=== PATIENT | male | born 1950 | race Caucasian/White ===

== ENCOUNTER → 2017-10-23 12:23 | Outpatient (CLI) | payer MEDICARE, OTHER, SELFPAY ==
--- NOTE | 2017-10-23 12:38 | XR_ITS ---
XR hand RT min 3V HISTORY: Right hand pain, thumb pain ITS.REASON: CYST ON BONE ORDERING PHYSICIAN: Nanette Duffy PATIENT AGE: 67 years COMPARISON: None FINDINGS: Scattered osteoarthritic changes are present involving the PIP and DIPs of all fingers including the first metacarpophalangeal joint and the first interphalangeal joint. Mildly prominent osteophyte is noted at the interphalangeal joint involving the proximal aspect of the distal phalanx laterally. No fracture or dislocation. No lytic or blastic change. There is focal soft tissue protrusion (at the prominent osteophyte of the interphalangeal joint of the palm. No aggressive bony destructive lesions evident IMPRESSION: 1. Osteoarthritis of the hand. 2. Mildly prominent osteophyte involving the proximal and lateral aspect of the interphalangeal joint of the thumb associated with focal soft tissue swelling
== END ==
PROVIDERS: PCP Nurse Practitioner; Visit Provider Nurse Practitioner
DX: M85.69 Other cyst of bone, multiple sites (principal)
CPT/HCPCS: 73130

== ENCOUNTER → 2017-11-09 09:51 | Outpatient (CLI) | payer MEDICARE, OTHER, SELFPAY ==
--- NOTE | 2017-11-09 10:13 | XR_ITS ---
XR chest 2V HISTORY: ITS.REASON: HTN, history of tobacco use ORDERING PHYSICIAN: Mariano De Oliveira MD PATIENT AGE: 67 years COMPARISON: 12/27/2016 FINDINGS: The cardiomediastinal silhouette and pulmonary vascularity are within normal limits. There is mild hyperinflation which may be related to COPD/small airway disease. No lobar consolidation or collapse evident.. Degenerative changes thoracic spine. No acute bony abnormalities. IMPRESSION: No change with no acute finding. Hyperinflation consistent small airway disease/COPD
[2017-11-09 11:23] LABS: Basophils # 0.1 K/mm3 (0-0.2); Basophils % 1.8 % (0.1-2.0); Eosinophils # 0.1 K/mm3 (0.0-0.4); Eosinophils % 2.9 % (0.1-12.0); Hematocrit 39.7 % (42.0-52.0); Hemoglobin 11.2 g/dL (14.1-18.0); Lymphocytes # 1.3 K/mm3 (0.7-4.5); Lymphocytes % 30.2 K/mm3 (10-50); Mean Corpuscular HGB Conc 28.3 g/dL (31.8-35.4); Mean Corpuscular Hemoglobin 20.2 pg (27.0-31.2); Mean Corpuscular Volume 71.4 fl (80-94); Mean Platelet Volume 7.7 fl (7.4-10.4); Monocytes # 0.3 K/mm3 (0.1-1.0); Monocytes % 6.1 % (1.7-9.3); Neutrophils # 2.6 K/mm3 (1.8-7.8); Platelet Count 229 K/mm3 (142-424); Red Blood Count 5.57 M/mm3 (4.60-6.20); Red Cell Distribution Width 17.5 % (11.5-17.5); White Blood Count 4.4 K/mm3 (4.8-10.8)
[2017-11-09 11:46] LABS: Anion Gap 12.8 mEq/L (5-15); Blood Urea Nitrogen 8 mg/dL (7-18); Carbon Dioxide 29 mmol/L (21.0-32.0); Chloride 104 mmol/L (98-107); Creatinine,Serum 1.05 mg/dL (0.70-1.30); Estimated Glomerular Filt Rate 71 ml/min (>60); GFR (African American) 86 ML/MIN (>60); Glucose 138 mg/dL (74-106); Potassium 4.8 mmoL/L (3.5-5.1); Sodium 141 mmol/L (136-145)
== END ==
PROVIDERS: Visit Provider Orthopaedic Surgery
DX: Z01.818 Encounter for other preprocedural examination (principal)
CPT/HCPCS: 36415; 71046; 80048; 85025; 93005

== ENCOUNTER → 2018-04-07 09:21 | Outpatient (CLI) | payer MEDICARE, OTHER, SELFPAY ==
[2018-04-07 09:42] LABS: Basophils % 1.2 % (0.1-2.0); Eosinophils # 0.3 K/mm3 (0.0-0.4); Hematocrit 34.7 % (42.0-52.0); Hemoglobin 10.6 g/dL (14.1-18.0); Lymphocytes # 0.9 K/mm3 (0.7-4.5); Lymphocytes % 24.7 K/mm3 (10-50); Mean Corpuscular HGB Conc 30.5 g/dL (31.8-35.4); Mean Corpuscular Hemoglobin 21.1 pg (27.0-31.2); Mean Corpuscular Volume 69.2 fl (80-94); Mean Platelet Volume 9.1 fl (7.4-10.4); Monocytes # 0.3 K/mm3 (0.1-1.0); Monocytes % 6.9 % (1.7-9.3); Neutrophils # 2.1 K/mm3 (1.8-7.8); Neutrophils % 58.2 % (37.0-80.0); Platelet Count 178 K/mm3 (142-424); Red Blood Count 5.01 M/mm3 (4.60-6.20); Red Cell Distribution Width 21.2 % (11.5-17.5); White Blood Count 3.6 K/mm3 (4.8-10.8)
[2018-04-07 13:08] LABS: Alanine Aminotransferase 337 U/L (12-78); Albumin Level 3.1 gm/dL (3.4-5.0); Anion Gap 11.3 mEq/L (5-15); Aspartate Amino Transferase 220 U/L (15-37); Bilirubin,Direct 6.1 mg/dL (0.0-0.2); Bilirubin,Indirect 1.2 mg/dL (0.0-0.9); Bilirubin,Total 7.3 mg/dL (0.2-1.0); Blood Urea Nitrogen 9 mg/dL (7-18); Calcium 9.4 mg/dL (8.5-10.1); Carbon Dioxide 30 mmol/L (21.0-32.0); Chloride 106 mmol/L (98-107); Creatinine,Serum 0.98 mg/dL (0.70-1.30); Estimated Glomerular Filt Rate 77 ml/min (>60); GFR (African American) 93 ML/MIN (>60); Glucose 149 mg/dL (74-106); Potassium 3.3 mmoL/L (3.5-5.1); Sodium 144 mmol/L (136-145); Total Protein,Serum 6.5 gm/dL (6.4-8.2)
[2018-04-07 13:59] LABS: Alkaline Phosphatase 2470 U/L (46-116)
[2018-04-08 15:08] LABS: Hep A Ab, IgM Negative (Negative); Hepatitis B Core Antibody IgM Negative (Negative); Hepatitis B Surface Antigen Negative (Negative)
[2018-04-08 18:34] LABS: Hepatitis C Antibody <0.1 s/co ratio (0.0-0.9)
== END ==
PROVIDERS: PCP Family Medicine; Visit Provider Nurse Practitioner Family
DX: R17 Unspecified jaundice (principal); R19.7 Diarrhea, unspecified
CPT/HCPCS: 36415; 80048; 80074; 80076; 85025

== ENCOUNTER → 2018-04-11 09:36 | Outpatient (CLI) | payer MEDICARE, OTHER, SELFPAY ==
[2018-04-11 10:50] LABS: Blood Urea Nitrogen 10 mg/dL (7-18); Creatinine,Serum 0.85 mg/dL (0.70-1.30); Estimated Glomerular Filt Rate 90 ml/min (>60); GFR (African American) 109 ML/MIN (>60)
--- NOTE | 2018-04-11 12:00 | CT_ITS ---
CT abdomen pelvis w con CLINICAL INDICATION: ITS.REASON: ELEVATED LIVER ENZYMES,JAUNDICE,DIARRHEA ORDERING PHYSICIAN: Nanette Duffy PATIENT AGE: 67 years COMPARISON: 07/11/2013 TECHNIQUE: Axial images obtained with sagittal and coronal reformats. All CT scans at the facility use one or more dose reduction, viz: automated exposure control, ma/kV adjustment per patient size (including targeted exams where dose is matched to indication, i.e. head), or iterative reconstruction technique. PROCEDURE: Oral Contrast: Redicat IV Contrast: 75 mL [id number]. FINDINGS: The lung bases are clear. There is dilatation of both the intra and extrahepatic biliary radicals. The common hepatic duct is dilated measuring up to 16 mm. There is a short common bile duct. The common bile duct does appear narrowed distally at the ampulla and there is also prominence of the pancreatic duct at approximately 4 to 5 mm. Lesion of the distal common bile duct is suspected. Suggest MRCP for further evaluation. The spleen and adrenal glands are unremarkable. There is an enhancing mass involving the upper pole the left kidney posteriorly at 3 points X x 3.2 cm isointense on the nephrogram phase imaging and slightly hypointense on the delayed images. There is a central area of decreased density within this lesion on the arterial phase images. This is suspicious for renal cell carcinoma. There are right renal cysts present. A 2.7 cm left renal cyst is also noted. No renal or ureteral calculi. Infrarenal abdominal aorta at 2.3 cm. There are no intestinal obstruction or free air. IMPRESSION: 1. Dilated intra and extrahepatic biliary system with dilatation of the pancreatic duct and suggestion of narrowing of the distal common bile duct. Obstruction of the distal common bile duct is considered. Neoplasm or stricture is a consideration. Recommend MRCP for further evaluation. Common bile duct stone could have a similar appearance 2. 3 cm left renal mass involving the superior pole the left kidney. Enhanced images show a stellate scar centrally. Differential diagnosis includes renal cell carcinoma or oncocytoma.
== END ==
PROVIDERS: PCP Family Medicine; Visit Provider Nurse Practitioner
DX: R74.8 Abnormal levels of other serum enzymes (principal); R17 Unspecified jaundice; R19.7 Diarrhea, unspecified
CPT/HCPCS: 36415; 74177; 82565; 84520; Q9967

== ENCOUNTER 2018-04-13 16:27 | Observation (INO) ==
--- NOTE | 2018-04-13 16:58 | Emergency Department Note ---
ED Disposition Clinical Impression: Hypokalemia, Jaundice Disposition: Xfer Short-Term Hosp Condition on Discharge: Good Referrals: Erich Angulo MD [Primary Care Provider] - - Critical Care Critical Care Time: Yes Attestation: On 04/13/18, the high probability of a clinically significant, sudden or life threatening deterioration of the following system(s) required my full and direct attention, intervention and personal management. The time I documented below is in addition to time spent performing reported procedures but includes the following listed in this critical care notation. Total Critical Care Time: 30 Vital system(s) involved:: Metabolic Failure My critical care processes included: Assessment & monitoring of V/S, Initial and Re-exams, Data Review/Interpretation, Coordinating Care, Medication Orders and management, Documentation Medical Decision Making - Medical Records MR Comment: kcl has come back 2.2, IV potassium ordered. 530pm family has said thier doctors at want them to come to to be admitted. call out to [facility]. 557pm trying to call the doctors to get him transferred. Spoke with the son that there is no indication for transfer just for the low potassium that that something we could do here and that they have to pay for an ambulance for the transfer. His son states it is not for the potassium that he stay wanted to be transferred but that he needs to have an emergent procedure done tomorrow. But he does not know what the emergent procedure is or really what it has to do with. We are calling to try to sort through these issues. 605pm have vania Abraham MD from , that they family states they office told them they need to be transfered to for emergency procedure tommorrow. but they have no idea what the procedure is. that the only thing emergent I know of is low potassium. discussed with [facility] MARTINEZ she states cannot look up records, recommends transfer to if that is what the family wants. 610pm on phone with Cheryl MARTINEZ, he states nothing in computer. 629 pm have vania Luna accepts in transfer to [facility]. - Isaac Inquiry Pt receiving controlled substance: No Vital Signs: 04/13/18 16:32 04/13/18 17:49 04/13/18 18:00 Temperature 98.4 F Temperature Source Oral Pulse Rate [Right Brachial] 66 63 65 Respiratory Rate 18 18 Blood Pressure [Right Arm] 119/74 134/71 136/74 Blood Pressure Mean [Right Arm] 89 92 94 Blood Pressure Source [Right Arm] Automatic Cuff Automatic Cuff Automatic Cuff Blood Pressure Position [Right Arm] Sitting Sitting Sitting 02 Sat by Pulse Oximetry 94 L 94 L 95 Oxygen Delivery Method Room Air Room Air Room Air - Lab Data Lab Results 04/13/18 16:45: Sodium 139, Potassium 2.2 L*, Chloride 100, Carbon Dioxide 29, Anion Gap 12.2, BUN 11, Creatinine 0.92, Estimated Creat Clear 92, Estimated GFR 83, Est GFR ( Amer) 100, Glucose 310 H, Calcium 8.9, Total Bilirubin 8.5 H, AST 150 H, ALT 226 H, Alkaline Phosphatase 1125 H, Total Protein 6.6, Albumin 2.8 L, Globulin 3.8 H, Albumin/Globulin Ratio 0.7 L 04/13/18 16:45: WBC 3.1 L, RBC 4.70, Hgb 9.8 L, Hct 32.1 L, MCV 68.3 L, MCH 20.8 L, MCHC 30.5 L, RDW 22.7 H, Plt Count 213, MPV 9.8, Neut % (Auto) 58.1, Lymph % (Auto) 28.5, [place] % (Auto) 5.4, Eos % (Auto) 6.8, Baso % (Auto) 1.1, Neut # (A uto) 1.8, Lymph # (Auto) 0.9, [place] # (Auto) 0.2, Eos # (Auto) 0.2, Baso # (Auto) 0.0 04/13/18 16:45: Phosphorus 2.1 L, Magnesium 1.3 L Result diagrams: 04/13/18 16:45 04/13/18 16:45 Orders (Tests/Meds): ED MEDICATIONS Generic Name Dose Route Start Last Admin Trade Name Freq PRN Reason Stop Dose Admin Potassium Chloride/Water 100 mls @ 100 mls/hr 04/13/18 17:30 04/13/18 17:37 Potassium Chloride 10meq/100ml Ivpb IV 04/13/18 20:29 100 mls/hr Q1H JENNIFER Administration Sodium Chloride 1,000 mls @ 999 mls/hr 04/13/18 17:45 04/13/18 17:38 Sod Chlor 0.9% 1000ml Bag IV 04/13/18 18:45 999 mls/hr .Q1H1M JENNIFER Administration Discontinued Medications Generic Name Dose Route Start Last Admin Trade Name Tono PRN Reason Stop Dose Admin Potassium Chloride 40 meq 04/13/18 17:24 04/13/18 17:48 Klor-Con 20meq Tablet PO 04/13/18 17:25 40 meq ONCE ONE Administration ORDERS Category Date Time Status ECG Request by /Nse Stat Y 04/13/18 16:59 Ordered - ECG Data Tracing #1 ER EKG read by myself shows normal sinus rhythm rate of 65, normal axis, no QT prolongation, nonspecific EKG General Adult HPI - General Chief complaint: Recheck/Abnormal Lab/Rx Stated complaint: Needs K IV Time Seen by Provider: 04/13/18 17:27 Mode of Arrival: Ambulatory Limitations: No Limitations Description of Symptoms (Recalled from ER Triage Doc. by RN): Pt reports he saw a liver specialist in [place] today and had blood work done. Pt states when he got home he was contacted by physcian's office and told to come to the ER r/t low potassium level - History of Present Illness HPI narrative: Patient states he feels his normal self he states he has some minimal fatigue he denies any pain no headache chest pain abdominal pain no nausea vomiting or diarrhea no palpitations no shortness of breath. He was seen at his doctor's office had some outpatient labs and they called him back and per the family his potassium was too low and they told him to present to the nearest emergency department. - Related Data Home Medications Medication Instructions Recorded Confirmed atorvastatin 80 mg tablet 80 mg PO DAILY 11/09/17 04/13/18 clopidogrel 75 mg tablet 75 mg PO DAILY 11/09/17 04/13/18 metformin ER 500 mg 500 mg PO DAILY 11/09/17 04/13/18 tablet,extended release 24 hr metoprolol succinate ER 50 mg 50 mg PO DAILY 11/09/17 04/13/18 tablet,extended release 24 hr omeprazole 40 mg capsule,delayed 40 mg PO DAILY 11/09/17 04/13/18 release sitagliptin 100 mg tablet 100 mg PO DAILY 11/09/17 04/13/18 Allergies Allergy/AdvReac Type Severity Reaction Status Date / Time No Known Allergies Allergy Verified 04/13/18 16:38 [facility] History I have reviewed the patient's past medical history: Yes Medical History: Reports:: Coronary Artery Disease, Diabetes Mellitus Type 2, Gastroesophageal Reflux Disease(GERD) Denies:: Diabetes Mellitus Type 1, Seizures Other Medical History: Reports: Arthritis. Denies: Blood Transfusion Reaction Laterality Cases: Left: Arthroscopy Knee, Right: Other Other Surgeries: Yes: Colonoscopy, Coronary Stent - Social History Smoking Status: Never smoker Alcohol Intake: never Alcohol Intake Frequency:: other - Psychiatric History Expresses thoughts of harming self/others: None Suicide Plan Description: No Plan Family Hx:: Cancer, Diabetes ROS Obtained: Yes All systems reviewed & no additional complaints Physical Exam General Appearance: Nontoxic Head: Normocephalic, without obvious abnormality, atraumatic. Eyes: conjunctiva/corneas clear ENT: Mucous membranes moist. Neck: No jugular venous distention. Cardiac: regular rate and rhythm Lungs: Clear to auscultation bilaterally Abdomen: Nontender, Nondistended, positive bowel sounds, no rebound : No CVA tenderness Extremities: no edema Musculoskeletal: No chest wall tenderness Skin: No rashes or lesions to exposed skin. Neurologic: Alert. No gross focal deficits Psychiatric: Normal affect - General General appearance: alert - Respiratory Respiratory exam: Present: normal lung sounds bilaterally - Cardiovascular Cardiovascular exam: Present: regular rate - Neurological Exam Neurological exam: Present: alert
[2018-04-13 17:09] LABS: Basophils % 1.1 % (0.1-2.0); Eosinophils # 0.2 K/mm3 (0.0-0.4); Eosinophils % 6.8 % (0.1-12.0); Hematocrit 32.1 % (42.0-52.0); Hemoglobin 9.8 g/dL (14.1-18.0); Lymphocytes # 0.9 K/mm3 (0.7-4.5); Lymphocytes % 28.5 K/mm3 (10-50); Mean Corpuscular HGB Conc 30.5 g/dL (31.8-35.4); Mean Corpuscular Hemoglobin 20.8 pg (27.0-31.2); Mean Corpuscular Volume 68.3 fl (80-94); Mean Platelet Volume 9.8 fl (7.4-10.4); Monocytes # 0.2 K/mm3 (0.1-1.0); Monocytes % 5.4 % (1.7-9.3); Neutrophils # 1.8 K/mm3 (1.8-7.8); Neutrophils % 58.1 % (37.0-80.0); Platelet Count 213 K/mm3 (142-424); Red Cell Distribution Width 22.7 % (11.5-17.5); White Blood Count 3.1 K/mm3 (4.8-10.8)
[2018-04-13 17:18] LABS: Albumin Level 2.8 gm/dL (3.4-5.0); Albumin/Globulin Ratio 0.7 (1.1-1.8); Anion Gap 12.2 mEq/L (5-15); Bilirubin,Total 8.5 mg/dL (0.2-1.0); Calcium 8.9 mg/dL (8.5-10.1); Globulin 3.8 gm/dl (1.3-3.2); Total Protein,Serum 6.6 gm/dL (6.4-8.2)
[2018-04-13 17:23] LABS: Potassium 2.2 mmoL/L (3.5-5.1)
[2018-04-13 17:48] LABS: Phosphorous 2.1 mg/dL (2.4-4.9)
[2018-04-14 00:36] LABS: Anion Gap 9.6 mEq/L (5-15); Calcium 8.4 mg/dL (8.5-10.1)
[2018-04-14 00:38] LABS: Potassium 2.6 mmoL/L (3.5-5.1)
[2018-04-14 08:26] LABS: Basophils % 1.1 % (0.1-2.0); Eosinophils # 0.3 K/mm3 (0.0-0.4); Eosinophils % 7.4 % (0.1-12.0); Hemoglobin 9.7 g/dL (14.1-18.0); Lymphocytes # 1.1 K/mm3 (0.7-4.5); Lymphocytes % 30.1 K/mm3 (10-50); Mean Corpuscular HGB Conc 30.2 g/dL (31.8-35.4); Mean Corpuscular Hemoglobin 20.9 pg (27.0-31.2); Mean Corpuscular Volume 69.3 fl (80-94); Mean Platelet Volume 8.5 fl (7.4-10.4); Monocytes # 0.2 K/mm3 (0.1-1.0); Monocytes % 5.4 % (1.7-9.3); Neutrophils # 2.1 K/mm3 (1.8-7.8); Platelet Count 196 K/mm3 (142-424); Red Blood Count 4.62 M/mm3 (4.60-6.20); Red Cell Distribution Width 22.8 % (11.5-17.5); White Blood Count 3.7 K/mm3 (4.8-10.8)
[2018-04-14 08:46] LABS: Albumin Level 2.5 gm/dL (3.4-5.0); Albumin/Globulin Ratio 0.7 (1.1-1.8); Anion Gap 9.4 mEq/L (5-15); Bilirubin,Total 7.9 mg/dL (0.2-1.0); Calcium 8.4 mg/dL (8.5-10.1); Globulin 3.6 gm/dl (1.3-3.2); Total Protein,Serum 6.1 gm/dL (6.4-8.2)
[2018-04-14 08:55] LABS: Phosphorous 1.8 mg/dL (2.4-4.9); Potassium 3.4 mmoL/L (3.5-5.1)
--- NOTE | 2018-04-26 13:20 | H&P/Discharge Summary ---
General - General Admission date:: 04/13/18 Discharge date: 04/14/18 *Admission Date: 04/14/18 *Chief complaint: Patient was instructed to come to the emergency department *History of present illness: 67-year-old male who has recently been discovered to have a either metastatic renal cancer or metastatic pancreatic cancer presented to the emergency department being contacted by the [facility] and told to go to the nearest emergency department due to low potassium. Patient had been seen by the GI clinic yesterday and scheduled for MRCP due to jaundice and abnormal liver enzymes with system of malignancy. Labs performed showed hypokalemia and patient was contacted. He presented emergency department without complaint other than a little bit of weakness and was found to have a potassium of 2.2. Patient was admitted for IV and oral replacement of potassium [facility] History I have reviewed the patient's past medical history: Yes Medical History: Reports:: Coronary Artery Disease, Diabetes Mellitus Type 2, Gastroesophageal Reflux Disease(GERD), Hyperlipidemia, Hypertension, Myocardial Infarction Denies:: Diabetes Mellitus Type 1, Seizures Other Medical History: Reports: Arthritis. Denies: Blood Transfusion Reaction Laterality Cases: Left: Arthroscopy Knee, Right: Other Other Surgeries: Yes: Colonoscopy, Coronary Stent - *Social History Smoking Status: Former smoker Smoking End Date: 2 years Alcohol Intake: never Alcohol Intake Frequency:: other Occupational Status: retired Housing: house - Psychiatric History Expresses thoughts of harming self/others: None Suicide Plan Description: No Plan *Family Hx:: Cancer, Diabetes, Heart Attack Review of Systems - Review of Systems Review of systems:: pertinent systems reviewed and negative unless documented below - Constitutional Reports weakness, Denies body ache(s), Denies chills - Eyes Denies blurry vision, Denies change in vision - *Cardiovascular Denies chest pain at rest - *Respiratory Denies cough - *Gastrointestinal Denies abdominal pain, Denies cramping, Denies loose stools, Denies heartburn Exam Vital signs and Labs for Last 24 Hours: Temp Pulse Resp BP Pulse Ox 98.4 F 67 18 126/74 98 04/14/18 04:00 04/14/18 04:00 04/14/18 04:00 04/14/18 04:00 04/14/18 04:00 Laboratory Results - last 24 hr 04/13/18 16:45: Sodium 139, Potassium 2.2 L*, Chloride 100, Carbon Dioxide 29, Anion Gap 12.2, BUN 11, Creatinine 0.92, Estimated Creat Clear 92, Estimated GFR 83, Est GFR ( Amer) 100, Glucose 310 H, Calcium 8.9, Total Bilirubin 8.5 H, AST 150 H, ALT 226 H, Alkaline Phosphatase 1125 H, Total Protein 6.6, Albumin 2.8 L, Globulin 3.8 H, Albumin/Globulin Ratio 0.7 L 04/13/18 16:45: WBC 3.1 L, RBC 4.70, Hgb 9.8 L, Hct 32.1 L, MCV 68.3 L, MCH 20.8 L, MCHC 30.5 L, RDW 22.7 H, Plt Count 213, MPV 9.8, Neut % (Auto) 58.1, Lymph % (Auto) 28.5, [place] % (Auto) 5.4, Eos % (Auto) 6.8, Baso % (Auto) 1.1, Neut # (Auto) 1.8, Lymph # (Auto) 0.9, [place] # (Auto) 0.2, Eos # (Auto) 0.2, Baso # (Auto) 0.0 04/13/18 16:45: Phosphorus 2.1 L, Magnesium 1.3 L 04/14/18 00:20: Sodium 139, Potassium 2.6 L*, Chloride 103, Carbon Dioxide 29, Anion Gap 9.6, BUN 11, Creatinine 0.87, Estimated Creat Clear 92, Estimated GFR 88, Est GFR ( Amer) 107, Glucose 252 H, Calcium 8.4 L 04/14/18 06:16: POC Glucose 144 H I & O for Last 24 hours: Intake & Output 04/11/18 04/12/18 04/13/18 04/14/18 11:59 11:59 11:59 11:59 Intake Total 729.333 / 729.333 Balance 729.333 / 729.333 Weight 195 lb 9 oz Narrative: Patient is awake and alert. Skin is jaundiced he has scleral icterus. Orophary nx is moist. Neck is without lymphadenopathy. Lungs are clear. Heart has a regular rate and rhythm abdomen is soft and nontender. Neurologic exam is normal and he has no neurologic deficits per Hospital Course Hospital Course: Patient was admitted and given both IV and oral potassium supplementation. Potassium level improved. Patient was discharged home with oral potassium and will follow-up at for his MRCP. Apparently endoscopy is in the near future as well but he will need to be off his Plavix. I have given him permission to stop his Plavix. Patient has coronary artery disease and had [place] with stent in February 2016. Results Labs on day of discharge: Labs from last 24 hours 04/14/18 04/14/18 04/13/18 06:16 00:20 16:45 WBC RBC Hgb Hct MCV MCH MCHC RDW Plt Count MPV Neut % (Auto) Lymph % (Auto) [place] % (Auto) Eos % (Auto) Baso % (Auto) Neut # (Auto) Lymph # (Auto) [place] # (Auto) Eos # (Auto) Baso # (Auto) Sodium 139 Potassium 2.6 L* Chloride 103 Carbon Dioxide 29 Anion Gap 9.6 BUN 11 Creatinine 0.87 Estimated Creat Clear 92 Estimated GFR 88 Est GFR ( Amer) 107 Glucose 252 H POC Glucose 144 H Calcium 8.4 L Phosphorus 2.1 L Magnesium 1.3 L Total Bilirubin AST ALT Alkaline Phosphatase Total Protein Albumin Globulin Albumin/Globulin Ratio 04/13/18 04/13/18 16:45 16:45 WBC 3.1 L RBC 4.70 Hgb 9.8 L Hct 32.1 L MCV 68.3 L MCH 20.8 L MCHC 30.5 L RDW 22.7 H Plt Count 213 MPV 9.8 Neut % (Auto) 58.1 Lymph % (Auto) 28.5 [place] % (Auto) 5.4 Eos % (Auto) 6.8 Baso % (Auto) 1.1 Neut # (Auto) 1.8 Lymph # (Auto) 0.9 [place] # (Auto) 0.2 Eos # (Auto) 0.2 Baso # (Auto) 0.0 Sodium 139 Potassium 2.2 L* Chloride 100 Carbon Dioxide 29 Anion Gap 12.2 BUN 11 Creatinine 0.92 Estimated Creat Clear 92 Estimated GFR 83 Est GFR ( Amer) 100 Glucose 310 H POC Glucose Calcium 8.9 Phosphorus Magnesium Total Bilirubin 8.5 H AST 150 H ALT 226 H Alkaline Phosphatase 1125 H Total Protein 6.6 Albumin 2.8 L Globulin 3.8 H Albumin/Globulin Ratio 0.7 L DS: Diagnosis - Discharge Diagnosis (1) Hypokalemia Status: Acute (2) Jaundice Status: Acute Discharge Medications - Medications for Discharge Home Medication List at Discharge: No Action sitagliptin 100 mg tablet 100 mg PO DAILY omeprazole 40 mg capsule,delayed release 40 mg PO DAILY clopidogrel 75 mg tablet 75 mg PO DAILY atorvastatin 80 mg tablet 80 mg PO DAILY metoprolol succinate ER 50 mg tablet,extended release 24 hr 50 mg PO DAILY metformin ER 500 mg tablet,extended release 24 hr 500 mg PO DAILY Zolpidem Tartrate [Ambien] 10 mg PO HS Candesartan/Hydrochlorothiazid [Candesartan-Hctz 32-12.5 mg Tb] 1 each PO DAILY Budesonide/Formoterol Fumarate [Symbicort 80-4.5 Mcg Inhaler] 10.2 gm IH DAILY Disposition Disposition: Home, Self-Care
== END 2018-04-14 09:10 | disposition home or self-care (01) ==
LOC: ER 16:27 → 2ND 16:27
PROVIDERS: ADMIT Internal Medicine Adolescent Medicine; ATTEND Family Medicine
CPT/HCPCS: 36415; 80048; 80053; 82962; 83735; 84100; 85025; 93005; 96365; 96366; 99284; G0378

== ENCOUNTER → 2019-07-08 09:09 | Outpatient (CLI) | payer SELFPAY ==
[2019-07-08 13:28] LABS: Anion Gap 9.9 mEq/L (5-15); Blood Urea Nitrogen 8 mg/dL (7-18); Calcium 8.7 mg/dL (8.5-10.1); Carbon Dioxide 30 mmol/L (21.0-32.0); Chloride 100 mmol/L (98-107); Creatinine,Serum 0.69 mg/dL (0.70-1.30); Estimated Glomerular Filt Rate 115 ml/min (>60); GFR (African American) 139 ML/MIN (>60); Glucose 108 mg/dL (74-106); Potassium 3.9 mmoL/L (3.5-5.1); Sodium 136 mmol/L (136-145)
[2019-07-08 13:29] LABS: Alanine Aminotransferase 72 U/L (12-78); Albumin Level 2.4 gm/dL (3.4-5.0); Albumin/Globulin Ratio 0.6 (1.1-1.8); Alkaline Phosphatase 1633 U/L (46-116); Aspartate Amino Transferase 120 U/L (15-37); Total Protein,Serum 6.4 gm/dL (6.4-8.2)
== END ==
PROVIDERS: Visit Provider Internal Medicine Hematology & Oncology
DX: R17 Unspecified jaundice (principal)
CPT/HCPCS: 36415; 80053